=== PATIENT | male | born 1985 | race African-American/Black ===

== ENCOUNTER 2017-11-17 02:11 | Inpatient (IN) | payer OTHER ==
[2017-11-17 10:50] VITALS: BP 118/77
[2017-11-17] MEDS ORDERED: ABILIFY5 MG PO (11:32)
[2017-11-17] MEDS ORDERED: SEROQUEL12.5 MG PO (11:34)
[2017-11-17 15:55] VITALS: BP 122/77
== END 2017-11-18 11:48 | disposition home or self-care (01) | DRG 885 ==
LOC: 1WEST 02:11 → ENRESERV 02:11 → 1WEST 02:23
DX: F25.9 Schizoaffective disorder, unspecified (principal); F16.14 Hallucinogen abuse with hallucinogen-induced mood disorder; F31.9 Bipolar disorder, unspecified; F60.2 Antisocial personality disorder; R45.851 Suicidal ideations; Z59.0 Homelessness; Z65.3 Problems related to other legal circumstances